=== PATIENT | male | born 1940 | race Caucasian/White ===

== ENCOUNTER → 2018-02-10 | Outpatient (REF) ==
[~2018-02-10] MED LIST: PRILOSEC 20MG20 MG PO
== END ==
LOC: ZLAB.WCH 16:33
DX: Z01.89 Encounter for other specified special examinations (principal)
CPT/HCPCS: G0103

== ENCOUNTER → 2021-03-15 | Outpatient (CLI) | payer MEDICARE | LOC: ZCOL.LAB 15:47 | DX: L97.519 Non-pressure chronic ulcer of other part of right foot with unspecified severity (principal) ==